=== PATIENT | female | born 1980 | race Caucasian/White ===

== ENCOUNTER 2017-03-27 20:39 | Emergency (ER) | payer OTHER ==
[~2017-03-27] VITALS: Ht 167.6 cm; Wt 105.5 kg
[~2017-03-27 20:39] MED LIST: IBUP400T22 PO; PT TAKES NO MEDS; UDROBDM PO
[2017-03-27 20:45] VITALS: Ht 167.6 cm; Wt 105.5 kg
[2017-03-27] MEDS ORDERED: ACETAMINOPHEN 500 MG TAB PO STA (21:44)
[2017-03-27] MEDS ORDERED: LIDOCAINE/MYLANTA 40 ML BTL PO ONE (22:00)
--- NOTE | 2017-03-27 22:09 | RADRPT ---
PROCEDURE: XR Chest. CLINICAL INDICATION: Chest pain. TECHNIQUE: Single frontal view. COMPARISON: None. FINDINGS: The lungs are clear. The heart size is normal. There is no pleural effusion. There is no pneumothorax. IMPRESSION: 1. Normal chest radiograph. RPTAT: QQ .Boston Tan MD, Date Time Electronically viewed and signed by .Boston Tan MD, on 03/27/2017 22:08 .R/
[2017-03-27 22:33] LABS: URINE BLOOD (Dip) POC Trace-intact (NEGATIVE)
--- NOTE | 2017-03-27 23:29 | RADRPT ---
PROCEDURE: CT abdomen and pelvis without intravenous contrast. CLINICAL INDICATION: Pain. TECHNIQUE: CT of the abdomen/pelvis was performed utilizing axial images with reconstructions in s agittal and coronal planes. The administered radiation dose is CTDI 22 mGy, DLP 1279 mGy-cm. COMPARISON: No pertinent prior examinations were submitted for comparison. FINDINGS: Visualized Chest: The visualized lung bases are clear. Abdomen: The spleen, pancreas, and adrenal glands are unremarkable. The liver is markedly, diffusely decre ased in attenuation, compatible with hepatic steatosis. Prior cholecystectomy is noted. The kidneys are without hydronephrosis. No definite urinary calculi are seen. There is some mild dilatation of the distal appendix measuring up to 10 mm along with some minimal s urrounding fat infiltrative changes.. There is no evidence of intra-abdominal adenopathy or free fluid. Pelvis: There is no evidence of pelvic adenopathy. The uterus and ovaries are without enlargement. The uri nary bladder is unremarkable. There is no pelvic free fluid. Osseous structures: Unremarkable. IMPRESSION: Mild enlargement of the distal appendix with some minimal surrounding fat infiltrative changes. Ple ase correlate for right lower quadrant tenderness and leukocytosis which would suggest tip appendici tis. Hepatic steatosis. RPTAT: HIKT .Cedrick Young MD, MD Date Time Electronically viewed and signed by .Cedrick Young MD, on 03/27/2017 23:29 .T/
[2017-03-27] MEDS ORDERED: ACET500C5 PO (23:35)
[2017-03-27] MEDS ORDERED: PANT40TA3 PO (23:35)
--- NOTE | 2017-03-27 23:38 | ERD ---
ER Documentation Chief Complaint Date/Time DATE: 03/27/17 TIME: 23:36 Chief Complaint LUQ abd pain radiating to the upper back denies N/V/Diarrhea HPI This 37-year-old female presents with a approximately 1 week history of left upper quadrant abdominal pain. Radiates slightly from the back. She denies any lower abdominal pain or right-sided abdominal pain. She denies fevers, decreased appetite, vomiting or diarrhea. She denies any urinary complaints. She denies any cough or shortness of breath. ROS All systems reviewed and are negative except as per history of present illness. Medications Home Meds Active Scripts Pantoprazole* (Protonix*) 40 Mg Tablet.dr, 40 MG PO DAILY for 15 Days, #20 TAB Prov:EDILBERTO NAZARIO MD 03/27/17 Acetaminophen* (Tylophen*) 500 Mg Capsule, 1 CAP PO Q6H Y for PAIN AND OR ELEVATED TEMP, #20 CAP Prov:EDILBERTO NAZARIO MD 03/27/17 Ibuprofen* (Motrin*) 400 Mg Tab, 400 MG PO Q6, #30 TAB 0 Refills Prov:EVELYN KATZ PA-C 02/16/16 Guaifenesin-Dextromethorphan* (Robitussin* DM) 100MG/10MG/5ML Syrup, 5 ML PO Q6H Y for COUGH for 6 Days, #120 ML 0 Refills Prov:EVELYN KATZ PA-C 02/16/16 Reported Medications [Pt Takes No Meds] No Conflict Check 11/06/12 Allergies Allergies: Coded Allergies: No Known Allergy (Verified , 01/29/14) PMhx/Soc History of Surgery: Yes (cholecystectomy) Anesthesia Reaction: No Hx Neurological Disorder: No Hx Respiratory Disorders: No Hx Cardiac Disorders: No Hx Psychiatric Problems: No Hx Miscellaneous Medical Probl: No Hx Alcohol Use: No Hx Substance Use: No Hx Tobacco Use: No Physical Exam Vitals Vital Signs Date Time Temp Pulse Resp B/P Pulse Ox O2 Delivery O2 Flow Rate FiO2 03/27/17 20:45 98.5 73 18 136/86 96 Physical Exam Const: [], Not ill-appearing per Head: Atraumatic Eyes: Normal Conjunctiva ENT: Normal External Ears, Nose and Mouth. Neck: Full range of motion..~ No meningismus. Resp: Clear to auscultation bilaterally Cardio: Regular rate and rhythm, no murmurs Abd: Soft, n minimal tenderness in left lower quadrant slightly in the left flank area. No change at McBurney's point no Morin sign and no rebound., non distended. Normal bowel sounds. Patient has negative Rovsing sign no evidence of pain with ambulation or peritoneal signs. Skin: No petechiae or rashes Back: No midline or flank tenderness Ext: No cyanosis, or edema Neur: Awake and alert Psych: Normal Mood and Affect Results 24 hrs Laboratory Tests Test 03/27/17 22:38 Bedside Urine pH (LAB) 6.0 Bedside Urine Protein (LAB) Negative Bedside Urine Glucose (UA) Negative Bedside Urine Ketones (LAB) Negative Bedside Urine Blood Trace-intact Bedside Urine Nitrite (LAB) Negative Bedside Urine Leukocyte Esterase (L Negative Current Medications Medications (Trade) Dose Ordered Sig/Jazmine Route PRN Reason Start Time Stop Time Status Last Admin Dose Admin Acetaminophen (Tylenol Tab) 500 mg ONCE STAT PO 03/27/17 21:44 03/27/17 21:45 DC 03/27/17 22:24 Miscellaneous Medication (Gi Cocktail (2)) 40 ml ONCE ONCE PO 03/27/17 22:00 03/27/17 22:01 DC 03/27/17 22:24 Procedures/MDM And shows 1+ hemoglobin. HCG is negative. No leukocytes, nitrites or glucose. Patient was given a GI cocktail and Tylenol which improved her pain. She has some mild residual burning of the epigastric area. Chest X-ray 1V Interpreted by me: Soft Tissue: No acute abnormalities Bones: No acute abnormalities Mediastinum/Cardiac Silhouette/Lungs: [No acute abnormalities]. Impression- normal 1 view chest x-ray The uncertain cause of pain CT abdomen pelvis noncontrast showed wishes some mild dilatation of the tip of the appendix correlate clinically for appendicitis. Patient on serial abdominal exam and had no right lower quadrant tenderness no signs to suggest appendicitis. Given the absence of fevers, anorexia, vomiting and duration of symptoms and suspicion for appendicitis is very low despite incidental findings of CT scan. Patient has signs and symptoms most consistent with gastritis and we will treat with Protonix and Tylenol and close observation at home. She should recheck the next day for lower abdominal pain, right-sided abdominal pain, fevers, vomiting, new worsening symptoms with primary care doctor this week. The patient was stable with no new complaints during the ER course. Clinically, there is no current evidence to suggest meningitis, sepsis, acute abdomen, pneumonia, acute coronary syndrome, pulmonary embolism, or any other emergent condition appearing to require further evaluation or hospitalization. The patient should certainly return for any new or worsening symptoms per the aftercare instructions. They should otherwise follow-up with her primary care doctor for reevaluation this week. Departure Diagnosis: Primary Impression: Abdominal pain Abdominal location: epigastric Qualified Code: R10.13 - Epigastric pain Condition: Stable Patient Instructions: Abdominal Pain, Gastritis (Adult) Additional Instructions: Recheck in the next day for right lower abdominal pain, fevers, nausea vomiting. We will treat for gastritis. EDILBERTO NAZARIO MD Mar 27, 2017 23:38
[2017-03-27 23:56] VITALS: BP 118/78; PULSE 78; RESP 20; TEMP 98.3
[2017-03-28] MEDS ORDERED: FAMOTIDINE 20 MG TAB PO ONE
== END 2017-03-27 23:58 | disposition home or self-care (01) ==
LOC: FTE 20:39
DX: R10.13 Epigastric pain (principal)
CPT/HCPCS: 71010; 74176; 81003; Z7502; Z7610

== ENCOUNTER 2017-03-28 03:09 | Inpatient (IN) | payer OTHER ==
[2017-03-28] VITALS (15 sets, daily range): BP systolic 100–135; BP diastolic 57–74; PULSE 65–98; RESP 12–18; TEMP 98.2; Ht 167.6 cm; Wt 104.5 kg
[~2017-03-28] VITALS: Ht 167.6 cm; Wt 104.5 kg
[~2017-03-28 03:09] MED LIST changes: +ACET500C5 PO; +PANT40TA3 PO
[2017-03-28] MEDS ORDERED: ONDANSETRON 4 MG INJ IV STA (04:49)
[2017-03-28] MEDS ORDERED: morphine 4 MG/ML VIAL IV STA (04:49)
--- NOTE | 2017-03-28 04:58 | ERA ---
ER Documentation Chief Complaint Date/Time DATE: 03/28/17 TIME: 04:50 Chief Complaint abd pain HPI The patient is a 37-year-old female, presenting to the ER because of umbilical abdominal pain that began about 4 PM yesterday. He was seen in the ER and discharged. She came back today because of the pain is worsening. He denies fever, chills, neck pain, chest pain, dyspnea. The abdominal pain is 10/10, no aggravating or relieving factor. He denies diarrhea, constipation, dysuria, polyuria. He does not smoke or drink Past medical history: None Past surgical history: Cholecystectomy ROS All systems reviewed and are negative except as per history of present illness. Medications Home Meds Active Scripts Pantoprazole* (Protonix*) 40 Mg Tablet.dr, 40 MG PO DAILY for 15 Days, #20 TAB Prov:EDILBERTO NAZARIO MD 03/27/17 Acetaminophen* (Tylophen*) 500 Mg Capsule, 1 CAP PO Q6H Y for PAIN AND OR ELEVATED TEMP, #20 CAP Prov:EDILBERTO NAZARIO MD 03/27/17 Ibuprofen* (Motrin*) 400 Mg Tab, 400 MG PO Q6, #30 TAB 0 Refills Prov:EVELYN KATZ PA-C 02/16/16 Guaifenesin-Dextromethorphan* (Robitussin* DM) 100MG/10MG/5ML Syrup, 5 ML PO Q6H Y for COUGH for 6 Days, #120 ML 0 Refills Prov:EVELYN KATZ PA-C 02/16/16 Reported Medications [Pt Takes No Meds] No Conflict Check 11/06/12 Allergies Allergies: Coded Allergies: No Known Allergy (Verified , 01/29/14) PMhx/Soc History of Surgery: Yes (cholecystectomy) Anesthesia Reaction: No Hx Neurological Disorder: No Hx Respiratory Disorders: No Hx Cardiac Disorders: No Hx Psychiatric Problems: No Hx Miscellaneous Medical Probl: No Hx Alcohol Use: No Hx Substance Use: No Hx Tobacco Use: No Physical Exam Vitals Vital Signs Date Time Temp Pulse Resp B/P Pulse Ox O2 Delivery O2 Flow Rate FiO2 03/28/17 03:13 98.4 98 20 131/81 98 Physical Exam Const: No acute distress. Head: Atraumatic. Eyes: Normal Conjunctiva. ENT: Normal External Ears, Nose and Mouth. Neck: Full range of motion. No meningismus. Resp: Clear to auscultation bilaterally. Cardio: Regular rate and rhythm. Abd: Soft, non distended, normal bowel sounds, moderate umbilical and right lower quadrant tenderness. No rigidity, rebound, CVA tenderness Skin: No petechiae or rashes. Back: No midline or flank tenderness. Ext: No cyanosis, or edema. Neur: Awake and alert. No focal deficit Psych: Normal Mood and Affect. Results 24 hrs Current Medications Medications (Trade) Dose Ordered Sig/Jazmine Route PRN Reason Start Time Stop Time Status Last Admin Dose Admin Piperacillin Sod/ Tazobactam Sod 100 ml @ 200 mls/hr ONCE ONCE IVPB 03/28/17 05:00 03/28/17 05:29 Sodium Chloride (NS) 250 ml @ 250 mls/hr Q1H ONCE IV 03/28/17 05:00 03/28/17 05:59 Procedures/MDM MEDICAL MAKING DECISION: The patient is a 37-year-old female, presenting with acute appendicitis. She had a CAT scan earlier today did not show appendicitis. It is unclear why she was sent home. She was treated 1 L normal saline, Zosyn IV, morphine 4 mg IV for pain and Zofran 4 mg IV for nausea with good response. The differential diagnoses considered include but are not limited to cholelithiasis, cholecystitis, cystitis, pancreatitis, hepatitis, gastritis, peptic ulcer disease, gastric ulcer, appendicitis, diverticulitis, cholangitis, choledocholithiasis, partial small bowel obstruction. Consultation: I discussed the patient with the on-call general surgeon Dr Graham , who was made aware of the pending lab, the recent CT scan only a few hours ago. He accepted the patient at 4:50 AM Departure Diagnosis: Primary Impression: Acute appendicitis Condition: Stable Comments I discussed the findings with the patient. I discussed the patient with the on- call hospitalist Dr. Foley at 5 AM who was made aware of the lab, the treatment, the patient condition. The patient is admitted to medical surgery bed The patient's blood pressure was elevated (>120/80) but appears stable without evidence of hypertension emergency or urgency. The patient was counseled about the risks of hypertension and urged to pursue outpatient monitoring and therapy within a week with their primary care physician. ANGIE MARTIN MD Mar 28, 2017 04:58
[2017-03-28] MEDS ORDERED: SOD CHLORIDE 0.9% 250 ML IV ONE (05:00)
[2017-03-28] MEDS ORDERED: PIPER-TAZO 3.375 GM IV (PMX) 100 ML IVPB ONE (05:00)
[2017-03-28 05:12] LABS: ADD SCAN DIFF NO
[2017-03-28 05:14] LABS: BASOPHIL # 0.1 10^3/ul (0.0-0.1); BASOPHILS % 0.3 % (0.0-2.0); EOSINOPHILS # 0.1 10^3/ul (0.0-0.5); EOSINOPHILS % 0.3 % (0.0-7.0); HEMATOCRIT 38.2 % (37.0-47.0); HEMOGLOBIN 12.5 g/dl (12.0-16.0); LYMPHOCYTES # 1.7 10^3/ul (0.8-2.9); LYMPHOCYTES % 9.9 % (15.0-51.0); MEAN CORPUSCULAR HEMOGLOBIN 27.7 pg (29.0-33.0); MEAN CORPUSCULAR HGB CONC 32.7 g/dl (32.0-37.0); MEAN CORPUSCULAR VOLUME 84.5 fl (82.0-101.0); MEAN PLATELET VOLUME 11.6 fl (7.4-10.4); MONOCYTE # 0.8 10^3/ul (0.3-0.9); MONOCYTES % 4.7 % (0.0-11.0); NEUTROPHIL # 14.6 10^3/ul (1.6-7.5); NEUTROPHILS % 84.2 % (39.0-77.0); PLATELET COUNT 332 10^3/UL (140-415); RED BLOOD COUNT 4.52 10^6/ul (4.20-5.40); RED CELL DISTRIBUTION WIDTH 14.1 % (11.5-14.5); WHITE BLOOD COUNT 17.3 10^3/ul (4.8-10.8)
--- NOTE | 2017-03-28 05:28 | RADRPT ---
PROCEDURE: Chest. CLINICAL INDICATION: Chest pain. TECHNIQUE: Single frontal view of the chest was obtained. COMPARISON: 03/27/2017. FINDINGS: The cardiac silhouette is magnified. The aortic arch is unremarkable. There is no focal consolidat ion, vascular congestion or pleural effusion. There is no pneumothorax. IMPRESSION: No evidence for active cardiopulmonary disease. .Tim Marshall MD, MD Date Time Electronically viewed and signed by .Tim Marshall MD, on 03/28/2017 05:28 .T/
--- NOTE | 2017-03-28 05:43 | HP ---
Date/Time of Note Date/Time of Note DATE: 03/28/17 TIME: 05:42 Assessment/Plan VTE Prophylaxis VTE Prophylaxis Intervention: SCD's Assessment/Plan Chief Complaint/Hosp Course This is a 37 year female being admitted [facility] floor for: #1 acute appendicitis: Patient has right lower quadrant pain to palpation as well as an elevated white blood cell count of 17. CT of the scan yesterday which was suspicious for appendicitis please CT scan report for further information. Surgery was consulted. We will keep the patient n.p.o. Zosyn IV antibiotics. IV narcotic for pain control. #2 morbid obesity: We will check lipids and TSH and A1c. #3 DVT and GI prophylaxis: SCDs, protonix Further treatment strategy as per the clinical course Problems: HPI/ROS Admit Date/Time Admit Date/Time Hx of Present Illness Chief complaint: Abdominal pain 2 days This is a 37 year female presenting to the ER with abdominal pain 2 days. Patient had abdominal pain yesterday and came to the ED and had CAT scan imaging which was questionable for appendicitis of the tip. She was subsequently discharged home. She continued to have abdominal pain and nausea vomiting today. She describes the pain as sharp and is relatively all around the umbilicus and right side of her abdomen. Allergies: NKDA Medications: None ROS Const: As per HPI Eyes : No pain discharge or redness or change in visual acuity ENT: No pain, sore throat, congestion, congestion, dysphagia or discharge Respiratory: No shortness of breath, cough, sputum, wheezing, or pleuritic pain Cardiovascular: No chest pain, palpitation, PND, or edema GI : As per HPI Genitourinary: No dysuria, hematuria, flank pain , discharge or CVA tenderness Musculoskeletal: No joint pain, back pain, neck pain, restricted range of motion in neck or joints Skin: No rash, bruising or hives Neuro: No headache, dizziness, syncope, seizure, focal weakness Endocrine: No polyuria, polydipsia, temperature intolerance Psych: No hallucination, depression, anxiety or suicidal ideation PMH/Family/Social Past Medical History Medical History: no pertinent history Past Surgical History Cholecystectomy Family History Significant Family History: diabetes, hypertension Social History Alcohol Use: none Smoking Status: Never smoker Drug Use: none Exam/Review of Systems Vital Signs Vitals Vital Signs Date Time Temp Pulse Resp B/P Pulse Ox O2 Delivery O2 Flow Rate FiO2 7/14/17 03:13 98.4 98 20 131/81 98 Exam Exam General: Patient is a obese female lying in bed in no acute distress, she does have pain when palpated on the abdomen. HEENT: Atraumatic, normocephalic. The pupils are equal, round and reactive. Extraocular motor are intact Neck: Supple with full range of motion. No rigidity or meningismus Chest: Nontender Lungs: Clear to auscultation bilaterally no crackles rales or wheezing Heart: Normal S1-S2, Regular rhythm and rate. No murmur, S3, or S4 Abdomen: Soft, tenderness to palpation at the right lower quadrant, tenderness to palpation over the umbilical area. Extremities: Normal to inspection, no edema no cyanosis Neurologic: Normal mental status, speech normal, cranial nerves II through XII are intact, motor and sensory are intact, no focal weakness Additional Comments ROCEDURE: Chest. CLINICAL INDICATION: Chest pain. TECHNIQUE: Single frontal view of the chest was obtained. COMPARISON: 03/27/2017. FINDINGS: The cardiac silhouette is magnified. The aortic arch is unremarkable. There is no focal consolidation, vascular congestion or pleural effusion. There is no pneumothorax. IMPRESSION: No evidence for active cardiopulmonary disease. .Tim Marshall MD, MD Date Time Electronically viewed and signed by .Tim Marshall MD, on 03/28/2017 05:28 .T/ PROCEDURE: CT abdomen and pelvis without intravenous contrast. CLINICAL INDICATION: Pain. TECHNIQUE: CT of the abdomen/pelvis was performed utilizing axial images with reconstructions in sagittal and coronal planes. The administered radiation dose is CTDI 22 mGy, DLP 1279 mGy-cm. COMPARISON: No pertinent prior examinations were submitted for comparison. FINDINGS: Visualized Chest: The visualized lung bases are clear. Abdomen: The spleen, pancreas, and adrenal glands are unremarkable. The liver is markedly, diffusely decreased in attenuation, compatible with hepatic steatosis. Prior cholecystectomy is noted. The kidneys are without hydronephrosis. No definite urinary calculi are seen. There is some mild dilatation of the distal appendix measuring up to 10 mm along with some minimal surrounding fat infiltrative changes.. There is no evidence of intra-abdominal adenopathy or free fluid. Pelvis: There is no evidence of pelvic adenopathy. The uterus and ovaries are without enlargement. The urinary bladder is unremarkable. There is no pelvic free fluid. Osseous structures: Unremarkable. IMPRESSION: Mild enlargement of the distal appendix with some minimal surrounding fat infiltrative changes. Please correlate for right lower quadrant tenderness and leukocytosis which would suggest tip appendicitis. Hepatic steatosis. RPTAT: HIKT .Cedrick Young MD, MD Date Time Electronically viewed and signed by .Cedrick Young MD, MD on 03/27/2017 23:29 Labs Result Diagram: 03/28/17 0450 Medications Medications Current Medications Sodium Chloride (NS) 250 ml @ 250 mls/hr Q1H ONCE IV Last administered on 03/28t 05:00; Admin Dose 250 MLS/HR; Start 03/28/17 at 05:00; Stop 03/28/17 at 05 :59 SHARON CHAMPION Mar 28, 2017 05:43
[2017-03-28 05:44] LABS: ALBUMIN/GLOBULIN RATIO 1.47; BILIRUBIN,INDIRECT 0.6 mg/dl (0-1.1); BILIRUBIN,TOTAL 0.6 mg/dl (0.2-1.3); CALCIUM 9.7 mg/dl (8.4-10.2); CREATININE 0.66 mg/dl (0.44-1.00); POTASSIUM 3.8 mmol/L (3.5-5.1); TOTAL PROTEIN 8.4 g/dl (6.1-8.1)
[2017-03-28] MEDS ORDERED: ONDANSETRON 4 MG INJ IV PRN ×2 (06:00→21:30)
[2017-03-28] MEDS ORDERED: morphine 2 MG INJ IV PRN (06:00)
[2017-03-28] MEDS ORDERED: NACL 0.9% 3 ML SYG IV SCH (06:00)
[2017-03-28] MEDS: SOD CHLORIDE 0.9% 1,000 ML IV SCH ×3 (06:22→23:58)
[2017-03-28] MEDS: PANTOPRAZOLE 40 MG INJ IV SCH (06:25)
[2017-03-28] MEDS ORDERED: CEFAZOLIN 1 GM INJ ONE (07:00)
[2017-03-28] MEDS ORDERED: LIDOCAINE 2% (SDV) 5 ML INJ ONE (07:00)
[2017-03-28] MEDS ORDERED: ROCURONIUM 50 MG INJ ONE (07:00)
[2017-03-28 09:54] LABS: CHOL/HDL RATIO 3.9 RATIO
[2017-03-28 10:44] LABS: THYROID STIMULATING HORMONE 0.678 MIU/L (0.465-4.680)
[2017-03-28] MEDS: PIPER-TAZO 3.375 GM IV (PMX) 100 ML IVPB SCH ×3 (12:26→23:50)
--- NOTE | 2017-03-28 15:58 | CONS ---
Date/Time of Note Date/Time of Note DATE: 03/28/17 TIME: 15:53 Assessment/Plan Assessment/Plan Chief Complaint/Hosp Course 37-year-old female with acute appendicitis. This has been confirmed via CT scan and clinical findings of right lower quadrant abdominal pain. * Continue nothing by mouth * Broad-spectrum intravenous antibiotics * IV fluid hydration * Pain control Definitive treatment will consist of laparoscopic appendectomy; possible open. This has been explained to the patient along with all risks and benefits of the procedure. She fully understands and is agreeable to the treatment plan as outlined. Informed consent will be obtained and the patient will be scheduled for laparoscopic appendectomy; possible open Problems: Consultation Date/Type/Reason Admit Date/Time Date of Consultation: Mar 28, 2017 Type of Consultation: GENERAL SURGERY Reason for Consultation Acute appendicitis Hx of Present Illness Patient is a 37-year-old obese female who presented to the emergency room initially 2 days ago complaining of abdominal pain. At that time a CT scan of the abdomen and pelvis was done which showed mild dilation of the appendiceal tip with minimal inflammatory changes. She was sent home, however, her pain worsened and became more localized towards the umbilicus in the right lower quadrant. She then re-presented to the emergency room. She reports nausea and vomiting after the onset of pain. She denies any fever/chills. She denies any diarrhea or constipation. She reports having a similar episode of pain in the past for which she went to [facility]. She reports that there that she was told that she has some mild "swelling" of the appendix, however, nothing was done for her at that time and the pain resolved on its own. Currently she states she is still experiencing some mild umbilical and right lower quadrant abdominal pain. A 14 point review of systems was conducted and was negative except for that which is mentioned in HPI Past Medical History Medical History: no pertinent history Past Surgical History Past Surgical Hx: cholecystectomy Family History Significant Family History: no pertinent family hx Social History Alcohol Use: none Smoking Status: Never smoker Drug Use: none Exam/Review of Systems Vital Signs Vitals Vital Signs Date Time Temp Pulse Resp B/P Pulse Ox O2 Delivery O2 Flow Rate FiO2 03/28/17 14:10 98.8 77 16 117/70 97 03/28/17 06:49 Room Air Exam GENERAL: Awake, alert, oriented x 3. No acute distress. SKIN: No jaundice. HEENT: PERRLA, EOMI, No Scleral Icterus NECK: Supple without JVD CARDIOVASCULAR: S1S2, regular rate and rhythm. No murmurs appreciated. RESPIRATORY: Clear to auscultation bilaterally. ABDOMEN: Obese, soft, bowel sounds present, nondistended, there is right lower quadrant tenderness to palpation. EXTREMITIES: Free range of motion x 4. No cyanosis, edema, or clubbing. NEUROLOGIC: Cranial nerves II-XII are intact. Sensation is intact grossly. Results Result Diagram: 03/28/170 03/28/17 0450 Results 24 hrs Laboratory Tests Test 03/28/17 04:50 White Blood Count 17.3 H Red Blood Count 4.52 Hemoglobin 12.5 Hematocrit 38.2 Mean Corpuscular Volume 84.5 Mean Corpuscular Hemoglobin 27.7 L Mean Corpuscular Hemoglobin Concent 32.7 Red Cell Distribution Width 14.1 Platelet Count 332 Mean Platelet Volume 11.6 H Neutrophils % 84.2 H Lymphocytes % 9.9 L Monocytes % 4.7 Eosinophils % 0.3 Basophils % 0.3 Nucleated Red Blood Cells % 0.0 Neutrophils # 14.6 H Lymphocytes # 1.7 Monocytes # 0.8 Eosinophils # 0.1 Basophils # 0.1 Nucleated Red Blood Cells # 0.0 Sodium Level 136 Potassium Level 3.8 Chloride Level 99 Carbon Dioxide Level 27 Anion Gap 14 Blood Urea Nitrogen 10 Creatinine 0.66 Glucose Level 140 Hemoglobin A1c 6.1 H Calcium Level 9.7 Total Bilirubin 0.6 Direct Bilirubin 0.00 Indirect Bilirubin 0.6 Aspartate Amino Transf (AST/SGOT) 43 Alanine Aminotransferase (ALT/SGPT) 55 Alkaline Phosphatase 84 Total Protein 8.4 H Albumin 5.0 H Globulin 3.40 H Albumin/Globulin Ratio 1.47 Triglycerides Level 108 Cholesterol Level 176 LDL Cholesterol, Calculated 109 HDL Cholesterol 45 Cholesterol/HDL Ratio 3.9 Lipase 49 Thyroid Stimulating Hormone (TSH) 0.678 Medications Medications Current Medications Sodium Chloride (NS) 1,000 ml @ 80 mls/hr [id number] IV Last administered on 03/28t 06:22; Admin Dose 80 MLS/HR; Start 03/28/17 at 05:38 Ondansetron HCl (Zofran Inj) 4 mg Q6H PRN IV NAUSEA AND/OR VOMITING; Start at 06:00 Morphine Sulfate (morphine) 2 mg Q4H PRN IV SEVERE PAIN LEVEL 7-10; Start 03/28 at 06:00 Pantoprazole 40 mg 40 mg DAILY@06 IV Last administered on 03/28/17 06:25; Admin Dose 40 MG; Start 03/28/17 at 06:00 Piperacillin Sod/ Tazobactam Sod (Zosyn 3.375gm/ 100 ml (Pmx)) 100 ml @ 200 mls /hr Q6 IVPB Last administered on 03/28/17 12:26; Admin Dose 200 MLS/HR; Start 03/28/17 at 12:00 ANGIE RILEY MD Mar 28, 2017 15:57
[2017-03-28 16:39] LABS: ADD UMIC YES; UR ASCORBIC ACID NEGATIVE (NEGATIVE); UR BACTERIA FEW /HPF (NONE SEEN); UR BILIRUBIN (Dip) NEGATIVE (NEGATIVE); UR BLOOD (Dip) NEGATIVE (NEGATIVE); UR CLARITY CLOUDY (CLEAR); UR COLOR YELLOW (YELLOW); UR GLUCOSE (Dip) NEGATIVE (NEGATIVE); UR KETONES (Dip) NEGATIVE (NEGATIVE); UR LEUKOCYTE ESTERASE (Dip) NEGATIVE Leu/ul (NEGATIVE); UR MUCUS FEW /HPF (NONE SEEN); UR NITRITE (Dip) NEGATIVE (NEGATIVE); UR RBC 1 /HPF (0-5); UR SQUAMOUS EPITHELIAL CELL MANY /HPF (FEW); UR TOTAL PROTEIN (Dip) NEGATIVE (NEGATIVE); UR UROBILINOGEN (Dip) NEGATIVE (NEGATIVE)
[2017-03-28] MEDS ORDERED: MIDAZOLAM 1 MG/ML 2 ML INJ ONE (20:55)
[2017-03-28] MEDS ORDERED: FENTAnyl 50 MCG/ML VIAL ONE (20:56)
[2017-03-28] MEDS ORDERED: PROPOFOL 20 ML ONE (21:00)
[2017-03-28] MEDS ORDERED: SUCCINYLCHOLINE CHLORIDE 100 MG/5 ML SYG IV ONE (21:03)
[2017-03-28] MEDS: BUPIVACAINE 0.25%/EPI (SDV) 30 ML INJ ONE ×2 (21:21→22:07)
[2017-03-28] MEDS ORDERED: HYDROmorphONE (0.2 MG/ML) 10ML SYG IV PRN (21:30)
[2017-03-28] MEDS ORDERED: ONDANSETRON 4 MG INJ ONE (21:31)
[2017-03-28] MEDS ORDERED: GLYCOPYRROLATE 1 MG INJ ONE (21:31)
[2017-03-28] MEDS ORDERED: NEOSTIGMINE 3 MG/3 ML SYRINGE ONE (21:31)
[2017-03-28] MEDS ORDERED: DEXAMETHASONE 4 MG/ML 1 ML INJ ONE (21:32)
[2017-03-28] MEDS ORDERED: METOCLOPRAMIDE 10 MG INJ ONE (21:32)
[2017-03-28] MEDS ORDERED: MEPERIDINE 25 MG INJ ONE (22:16)
--- NOTE | 2017-03-28 22:16 | OPR ---
Date/Time of Note Date/Time of Note DATE: 03/28/17 TIME: 22:10 Operative Report Procedure Date: Mar 28, 2017 Preoperative Diagnosis Acute appendicitis with localized peritonitis Postoperative Diagnosis Acute appendicitis with localized peritonitis Operation Performed Laparoscopic appendectomy Surgeon: ANGIE RILEY MD Anesthesia: general Anesthesiologist: KACI ARIZA MD Estimated Blood Loss: minimal Specimens Appendix Complications: None Pt Condition Post Procedure: stable Disposition: PACU Indications The patient is a morbidly obese 37-year-old female who was initially seen in the emergency room the day prior to admission. She was complaining of right lower quadrant abdominal pain. At that time a CT scan showed dilated appendiceal tip with mild inflammatory changes. The patient was sent home, however, her pain persisted and she re-presented to the emergency room. She was therefore admitted and surgical consultation was called. She was kept nothing by mouth, started on broad-spectrum intravenous antibiotics and scheduled for laparoscopic appendectomy; possible open as definitive treatment. All risks and benefits of the procedure including but not limited to: Wound infection, excessive bleeding, injury to intra-abdominal organs, conversion to open procedure etc. were explained to the patient in full detail. The patient fully understood and wished to proceed with the procedure. Informed consent was therefore obtained. Operative\Procedure Findings Retrocecal nonperforated appendicitis Procedure Description The patient was brought to the operating room and placed supine on the operating table. Bilateral sequential compression devices were placed on both lower extremities. The patient had been maintained on broad-spectrum intravenous antibiotics while an inpatient on the floor. After the induction of smooth general endotracheal anesthesia the patient's abdomen was prepped and draped in the standard surgical fashion. A 5 mm incision was made in the superior umbilicus through the patient's prior laparoscopic cholecystectomy incision and a Veress needle was used to access the intra-abdominal cavity atraumatically. Pneumoperitoneum was then obtained and the Veress needle was exchanged for a 5 mm trocar through which a 5 mm laparoscope was placed. Two further working ports were then placed, a 12 mm port in the midline suprapubic area and another 5 mm port midway between the suprapubic and umbilical port sites. All port sites were anesthetized with 0.25% Marcaine with epinephrine prior to incision. Attention was then turned towards the right lower quadrant. Using atraumatic graspers the cecum was grasped and rotated medially. The tinea coli were followed downstairs convergence. A retrocecal appendix was identified. It was densely adhered to the retroperitoneum. It was gently dissected off using combination of blunt dissection and harmonic scalpel. Once it was dissected free, the appendix was grasped and retracted superiorly and medially exposing the mesoappendix. The appendix appeared erythematous and inflamed consistent with acute appendicitis, but not perforated. Using a [place] dissector window was made between the appendiceal base and the mesoappendix. The appendix was then transected at its base using a firing of the laparoscopic RUSTAM stapler. The mesoappendix was then taken using the harmonic scalpel. Once completely free the appendix was placed in an Endo Catch bag and withdrawn through the suprapubic port site and passed off the field as specimen. Hemostasis was then inspected for and noted to be adequate. The abdomen was then irrigated with copious amounts of warm normal saline and the irrigant returned crystal clear. The fascia of the suprapubic port site was then reapproximated using an Endo Close device and 0 Vicryl suture. Pneumoperitoneum was then released and all remaining trochars were withdrawn under direct vision. The subcutaneous tissues were irrigated with more warm normal saline and further local anesthesia was applied around the skin of the incision sites. The skin was then reapproximated using 4-0 Monocryl sutures in subcuticular fashion. The incisions were cleaned and Dermabond was applied and the patient was awoken from anesthesia and transported to the recovery room in stable condition. All counts were correct at the end of the case x 2. ANGIE RILEY MD Mar 28, 2017 22:16
[2017-03-28] MEDS ORDERED: MEPERIDINE 25 MG INJ IV PRN (22:30)
[2017-03-28] MEDS ORDERED: HYDROCODONE/APAP (5/325) TAB PO PRN (22:30)
[2017-03-28] MEDS ORDERED: HYDROmorphONE 1 MG/ML SYG IV PRN (22:30)
[2017-03-28] MEDS ORDERED: ACETAMINOPHEN 325 MG TAB PO PRN (22:30)
[2017-03-28] MEDS ORDERED: HYDROCODONE/APAP (10/325) TAB PO PRN (22:30)
[2017-03-29 00:15] VITALS: BP 101/60; RESP 17
[2017-03-29 00:45] VITALS: BP 111/66; RESP 16
[2017-03-29 02:16] VITALS: BP 123/62; RESP 16
[2017-03-29] MEDS: PANTOPRAZOLE 40 MG INJ IV SCH (06:12)
[2017-03-29] MEDS: PIPER-TAZO 3.375 GM IV (PMX) 100 ML IVPB SCH ×3 (06:12→17:41)
[2017-03-29] MEDS ORDERED: DEXTROSE 50% 50 ML SYRINGE ONE (06:49)
[2017-03-29 07:33] LABS: ADD SCAN DIFF NO
[2017-03-29 07:41] LABS: BASOPHILS % 0.3 % (0.0-2.0); HEMATOCRIT 35.6 % (37.0-47.0); HEMOGLOBIN 11.5 g/dl (12.0-16.0); LYMPHOCYTES # 1.3 10^3/ul (0.8-2.9); LYMPHOCYTES % 11.3 % (15.0-51.0); MEAN CORPUSCULAR HEMOGLOBIN 27.7 pg (29.0-33.0); MEAN CORPUSCULAR HGB CONC 32.3 g/dl (32.0-37.0); MEAN CORPUSCULAR VOLUME 85.8 fl (82.0-101.0); MEAN PLATELET VOLUME 11.6 fl (7.4-10.4); MONOCYTE # 0.2 10^3/ul (0.3-0.9); MONOCYTES % 1.9 % (0.0-11.0); NEUTROPHILS % 86.2 % (39.0-77.0); PLATELET COUNT 331 10^3/UL (140-415); RED BLOOD COUNT 4.15 10^6/ul (4.20-5.40); RED CELL DISTRIBUTION WIDTH 14.2 % (11.5-14.5); WHITE BLOOD COUNT 11.6 10^3/ul (4.8-10.8)
[2017-03-29 08:01] LABS: ALBUMIN 4.2 g/dl (3.3-4.9); ALBUMIN/GLOBULIN RATIO 1.55; BILIRUBIN,INDIRECT 0.7 mg/dl (0-1.1); BILIRUBIN,TOTAL 0.7 mg/dl (0.2-1.3); CREATININE 0.69 mg/dl (0.44-1.00); POTASSIUM 4.6 mmol/L (3.5-5.1); TOTAL PROTEIN 6.9 g/dl (6.1-8.1)
[2017-03-29 08:03] LABS: MAGNESIUM 2.2 mg/dl (1.7-2.5); PHOSPHORUS 3.7 mg/dl (2.5-4.9)
[2017-03-29 08:20] VITALS: BP 102/61; RESP 16
[2017-03-29] MEDS ORDERED: DOCUSATE SODIUM 100 MG CAP PO SCH (09:00)
--- NOTE | 2017-03-29 11:23 | PN ---
Date/Time of Note Date/Time of Note DATE: 03/29/17 TIME: 11:21 Assessment/Plan VTE Prophylaxis VTE Prophylaxis Intervention: ambulation, SCD's Lines/Catheters IV C[facility]ter Type [facility]from [facility]): Peripheral IV Urinary Cath still in place: No Assessment/Plan Chief Complaint/Hosp Course 1. Acute appendicitis with localized peritonitis. Status post laparoscopic appendectomy on 03/28/2017. Continue antibiotics. Encourage early ambulation and frequent use of incentive spirometry. 2. Leukocytosis. Most probably secondary to #1. Continue antibiotics. 3. Prediabetes with hemoglobin A1c of 6.1. Weight reduction advised. 4. Obesity. BMI of 37.2 kg/m. Weight reduction advised. 5. Fluids, electrolytes, and nutrition. Low-cholesterol diet. 6. DVT prophylaxis. Bilateral sequential compression devices. Ambulation. 7. Gastrointestinal prophylaxis. Proton pump inhibitors. 8. Plan. Continue analgesics. Continue antibiotics. Encourage frequent ambulation and frequent use of incentive spirometry. Await clearance from surgery before discharging the patient home. Case discussed with Dr. Pina. Problems: Subjective 24 Hr Interval Summary Free Text/Dictation Abdominal pain well controlled. Tolerating oral intake. Exam/Review of Systems Vital Signs Vitals Vital Signs Date Time Temp Pulse Resp B/P Pulse Ox O2 Delivery O2 Flow Rate FiO2 03/29/17 08:20 99.0 65 16 102/61 90 03/28/17 22:47 Room Air Intake and Output 03/28/17 03/28/17 03/29/17 15:00 23:00 07:00 Intake Total 100 ml 900 ml 300 ml Balance 100 ml 900 ml 300 ml Exam General: Obese 37 year-old female lying in bed in no apparent distress. HEENT: Normocephalic, atraumatic. Eyes: Anicteric sclerae, conjunctivae clear. ENT: Nasal septum midline, oral mucosa moist. Neck supple, no JVD noticed. Respiratory: Bilaterally clear breath sounds. No use of accessory muscles of respiration. No adventitious breath sounds. Cardiovascular: S1, S2 heard. No murmurs or gallops. Abdomen: Soft and nondistended. Bowel sounds positive in all 4 quadrants. Laparoscopic incision sites clean, dry, and intact. Genitourinary: Deferred. Extremities: No cyanosis, no clubbing, no edema. Peripheral pulses palpable. Neurologic: Cranial nerves II through XII grossly intact. The patient is awake, alert, and oriented. Skin: Normal skin turgor. No skin rashes. Results Result Diagram: 03/29/17 0702 03/29/17 0702 Results 24 hrs Laboratory Tests Test 03/28/17 15:00 03/29/17 07:02 Urine Color YELLOW Urine Clarity CLOUDY A Urine pH 7.[address] [place] 1.030 Urine Ketones NEGATIVE Urine Nitrite NEGATIVE Urine Bilirubin NEGATIVE Urine Urobilinogen NEGATIVE Urine Leukocyte Esterase NEGATIVE Urine Microscopic RBC 1 Urine Microscopic WBC 0 Urine Squamous Epithelial Cells MANY A Urine Bacteria FEW A Urine Mucus FEW A Urine Hemoglobin NEGATIVE Urine Glucose NEGATIVE Urine Total Protein NEGATIVE Urine Test NEGATIVE White Blood Count 11.6 #H Red Blood Count 4.15 L Hemoglobin 11.5 L Hematocrit 35.6 L Mean Corpuscular Volume 85.8 Mean Corpuscular Hemoglobin 27.7 L Mean Corpuscular Hemoglobin Concent 32.3 Red Cell Distribution Width 14.2 Platelet Count 331 Mean Platelet Volume 11.6 H Neutrophils % 86.2 H Lymphocytes % 11.3 L Monocytes % 1.9 Eosinophils % 0.0 Basophils % 0.3 Nucleated Red Blood Cells % 0.0 Neutrophils # 10.0 H Lymphocytes # 1.3 Monocytes # 0.2 L Eosinophils # 0.0 Basophils # 0.0 Nucleated Red Blood Cells # 0.0 Sodium Level 142 Potassium Level 4.6 Chloride Level 103 Carbon Dioxide Level 26 Anion Gap 18 H Blood Urea Nitrogen 7 Creatinine 0.69 Glucose Level 146 Calcium Level 9.0 Phosphorus Level 3.7 Magnesium Level 2.2 Total Bilirubin 0.7 Direct Bilirubin 0.00 Indirect Bilirubin 0.7 Aspartate Amino Transf (AST/SGOT) 21 Alanine Aminotransferase (ALT/SGPT) 41 Alkaline Phosphatase 68 Total Protein 6.9 # Albumin 4.2 Globulin 2.70 Albumin/Globulin Ratio 1.55 Medications Medications Current Medications Sodium Chloride (NS) 1,000 ml @ 80 mls/hr [id number] IV Last administered on 03/28 23:58; Admin Dose 80 MLS/HR; Start 03/28/17 at 05:38 Ondansetron HCl (Zofran Inj) 4 mg Q6H PRN IV NAUSEA AND/OR VOMITING Last administered on 03/28/17 17:27; Admin Dose 4 MG; Start 03/28/17 at 06:00 Morphine Sulfate (morphine) 2 mg Q4H PRN IV SEVERE PAIN LEVEL 7-10; Start 03/28 at 06:00 Pantoprazole 40 mg 40 mg DAILY@06 IV Last administered on 03/29/17 06:12; Admin Dose 40 MG; Start 03/28/17 at 06:00 Piperacillin Sod/ Tazobactam Sod (Zosyn 3.375gm/ 100 ml (Pmx)) 100 ml @ 200 mls /hr Q6 IVPB Last administered on 03/29/17 06:12; Admin Dose 200 MLS/HR; Start 03/28/17 at 12:00 Acetaminophen (Tylenol Tab) 650 mg Q6H PRN PO PAIN LEVEL 1-3 OR FEVER; Start at 22:30 Hydromorphone HCl (Dilaudid) 0.5 mg Q4H PRN IV PAIN LEVEL 8-10 Last administered on 03/29/17 06:12; Admin Dose 0.5 MG; Start 03/28/17 at 22:30 Acetaminophen/ Hydrocodone Bitart ([place] (5/325)) 1 tab Q6H PRN PO PAIN LEVEL 4 -7; Start 03/28/17 at 22:30 Acetaminophen/ Hydrocodone Bitart ([place] (10/325)) 1 tab Q6H PRN PO PAIN LEVEL 4-7; Start 03/28/17 at 22:30 Docusate Sodium (Colace) 100 mg BID PO Last administered on 03/29/17 08:37; Admin Dose 100 MG; Start 03/29/17 at 09:00 SARAH SINGH NP Mar 29, 2017 11:23
[2017-03-29 14:20] VITALS: BP 111/67; RESP 16
[2017-03-29] MEDS: SOD CHLORIDE 0.9% 1,000 ML IV SCH (17:41)
--- NOTE | 2017-03-29 18:17 | PN ---
Date/Time of Note Date/Time of Note DATE: 03/29/17 TIME: 18:15 Assessment/Plan Lines/Catheters IV Catheter Type (from Nrsg): Peripheral IV Khan in Place (from Nrsg): No Assessment/Plan Assessment/Plan 37-year-old female s/p Lap Appy POD#1 * Surgically stable for discharge home when medically cleared * Follow up in office in 1-2 weeks Subjective 24 Hr Interval Summary Doing well. Pain controlled. Ambulating. Tolerating diet. Afebrile. Exam/Review of Systems Vital Signs Vitals Vital Signs Date Time Temp Pulse Resp B/P Pulse Ox O2 Delivery O2 Flow Rate FiO2 03/29/17 14:20 98.2 81 16 111/67 94 03/28/17 22:47 Room Air Intake and Output 03/28/17 03/28/17 03/29/17 15:00 23:00 07:00 Intake Total 100 ml 900 ml 300 ml Balance 100 ml 900 ml 300 ml Exam Free Text/Dictation GENERAL: Awake, alert, oriented x 3. No acute distress. CARDIOVASCULAR: S1S2, regular rate and rhythm. No murmurs appreciated. RESPIRATORY: Clear to auscultation bilaterally. ABDOMEN: Obese, soft, bowel sounds present, nondistended. appropriate incisional tenderness to palpation INCISIONS: clean, dry, intact EXTREMITIES: Free range of motion x 4. No cyanosis, edema, or clubbing. Results Result Diagram: 03/29/17 0702 03/29/17 0702 ANGIE RILEY MD Mar 29, 2017 18:16
--- NOTE | 2017-03-29 18:22 | PDOCDIS ---
Discharge Instructions DIAGNOSIS Discharge Diagnosis Acute appendicitis. Status post lap appendectomy. CONDITION Patient Condition: Stable HOME CARE INSTRUCTIONS: Diet Instructions: Regular FOLLOW UP/APPOINTMENTS Follow-up Plan 1. Elliot Graham MD, General Surgery. OTHER ORDERS: Other Orders: 1. Regular diet as tolerated. 2. Keep incisions clean and dry. May shower. Avoid tub baths and swimming for 2 weeks. Use mild soap and pat dry the incisions. 3. Take medications as needed for pain. 4. Call the surgeon or go to the nearest ER if you have severe abdominal pain despite pain medications. 5. Call the surgeon or go to the nearest ER if you notice any bleeding or secretions coming out of the incision sites. Also call the surgeon if you notice any blood in stool, if you have persistent fevers, or any other unusual signs or symptoms. 6. Follow-up with the surgeon (Dr. Graham) in 7 days for incision check. 7. Avoid heavy lifting [more than 25 pounds] for 8 weeks. SARAH SINGH NP Mar 29, 2017 18:22
[2017-03-29] MEDS ORDERED: CEPH-443 PO (18:26)
--- NOTE | 2017-03-29 18:45 | DS ---
Date/Time of Note Date/Time of Note DATE: 03/29/17 TIME: 18:44 Discharge Summary Admission/Discharge Info Admit Date/Time Mar 28, 2017 at 05:06 Discharge Date/Time Discharge Diagnosis 1. Acute appendicitis. Status post lap appendectomy. 2. Prediabetes. 3. Obesity. Consults 1. Elliot Graham MD, General Surgery. Procedures Laparoscopic appendectomy on 03/28/2017. Hx of Present Illness Chief complaint: Abdominal pain 2 days This is a 37 year female presenting to the ER with abdominal pain 2 days. Patient had abdominal pain yesterday and came to the ED and had CAT scan imaging which was questionable for appendicitis of the tip. She was subsequently discharged home. She continued to have abdominal pain and nausea vomiting today. She describes the pain as sharp and is relatively all around the umbilicus and right side of her abdomen. Allergies: NKDA Medications: None Hospital Course The patient was admitted to inpatient medical surgical floor. The patient was kept n.p.o. The patient was started on empiric antibiotics. The patient was started on IV fluids. The patient was evaluated by general surgery and the patient was taken to the OR the patient underwent a laparoscopic appendectomy on 03/28/2017. The patient's operative findings showed some localized peritonitis. Postoperatively, the patient was started on a clear liquid diet and the patient's diet was advanced as tolerated to a regular consistency diet. The patient was encouraged on frequent ambulation and frequent use of incentive spirometry. The patient rarely needed any strong pain medications during the postoperative course. The patient is morbidly obese with a BMI of 37.2 kg/m. The patient was noticed to have prediabetes with a hemoglobin A1c of 6.1. The patient was informed about the same. The patient was encouraged on weight reduction. The patient was cleared by general surgery to be discharged home. The patient will be discharged home on oral antibiotics to be followed up with the surgeon. The patient refused to take any stronger analgesics. The patient verbalized that she will use [id number] Motrin for any pain. Discharge Instructions 1. Regular diet as tolerated. 2. Keep incisions clean and dry. May shower. Avoid tub baths and swimming for 2 weeks. Use mild soap and pat dry the incisions. 3. Take medications as needed for pain. 4. Call the surgeon or go to the nearest ER if you have severe abdominal pain despite pain medications. 5. Call the surgeon or go to the nearest ER if you notice any bleeding or secretions coming out of the incision sites. Also call the surgeon if you notice any blood in stool, if you have persistent fevers, or any other unusual signs or symptoms. 6. Follow-up with the surgeon (Dr. Graham) in 7 days for incision check. 7. Avoid heavy lifting [more than 25 pounds] for 8 weeks. The patient verbalized understanding of her discharge instructions. At this time I would like to thank Dr. Graham for seeing the patient, doing the necessary procedures, and providing clinical recommendations. Case discussed with Dr. Pina. Home Meds Active Scripts Cephalexin* (Keflex*) 500 Mg Capsule, 500 MG PO Q8 for 7 Days, #21 CAP Prov:SARAH SINGH NP 03/29/17 Pantoprazole* (Protonix*) 40 Mg Tablet., 40 MG PO DAILY for 15 Days, #20 TAB Prov:EDILBERTO NAZARIO MD 03/27/17 Discontinued Reported Medications [Pt Takes No Meds] No Conflict Check 11/06/12 Discontinued Scripts Acetaminophen* (Tylophen*) 500 Mg Capsule, 1 CAP PO Q6H Y for PAIN AND OR ELEVATED TEMP, #20 CAP Prov:EDILBERTO NAZARIO MD 03/27/17 Ibuprofen* (Motrin*) 400 Mg Tab, 400 MG PO Q6, #30 TAB 0 Refills Prov:EVELYN KATZ PA-C 02/16/16 Guaifenesin-Dextromethorphan* (Robitussin* DM) 100MG/10MG/5ML Syrup, 5 ML PO Q6H Y for COUGH for 6 Days, #120 ML 0 Refills Prov:EVELYN KATZ PA-C 02/16/16 Follow-up Plan Follow-up with Dr. Graham in 1 week. Primary Care Provider [facility] Time spent on discharge: > 30 minutes Pending Labs Laboratory Tests Test 03/29/17 07:02 White Blood Count 11.610^3/ul (4.8-10.8) Red Blood Count 4.1510^6/ul (4.20-5.40) Hemoglobin 11.5g/dl (12.0-16.0) Hematocrit 35.6% (37.0-47.0) Mean Corpuscular Volume 85.8fl (82.0-101.0) Mean Corpuscular Hemoglobin 27.7pg (29.0-33.0) Mean Corpuscular Hemoglobin Concent 32.3g/dl (32.0-37.0) Red Cell Distribution Width 14.2% (11.5-14.5) Platelet Count 53770^3/UL (140-415) Mean Platelet Volume 11.6fl (7.4-10.4) Neutrophils % 86.2% (39.0-77.0) Lymphocytes % 11.3% (15.0-51.0) Monocytes % 1.9% (0.0-11.0) Eosinophils % 0.0% (0.0-7.0) Basophils % 0.3% (0.0-2.0) Nucleated Red Blood Cells % 0.0/100WBC (0.0-0.0) Neutrophils # 10.010^3/ul (1.6-7.5) Lymphocytes # 1.310^3/ul (0.8-2.9) Monocytes # 0.210^3/ul (0.3-0.9) Eosinophils # 0.010^3/ul (0.0-0.5) Basophils # 0.010^3/ul (0.0-0.1) Nucleated Red Blood Cells # 0.010^3/ul (0.0-0.0) Sodium Level 142mmol/L (135-144) Potassium Level 4.6mmol/L (3.5-5.1) Chloride Level 103mmol/L (97-110) Carbon Dioxide Level 26mmol/L (21-31) Anion Gap 18 (8-16) Blood Urea Nitrogen 7mg/dl (7-20) Creatinine 0.69mg/dl (0.44-1.00) Glucose Level 146mg/dl (70-220) Calcium Level 9.0mg/dl (8.4-10.2) Phosphorus Level 3.7mg/dl (2.5-4.9) Magnesium Level 2.2mg/dl (1.7-2.5) Total Bilirubin 0.7mg/dl (0.2-1.3) Direct Bilirubin 0.00mg/dl (0.00-0.20) Indirect Bilirubin 0.7mg/dl (0-1.1) Aspartate Amino Transf (AST/SGOT) 21IU/L (15-46) Alanine Aminotransferase (ALT/SGPT) 41IU/L (13-69) Alkaline Phosphatase 68IU/L (42-121) Total Protein 6.9g/dl (6.1-8.1) Albumin 4.2g/dl (3.3-4.9) Globulin 2.70g/dl (1.3-3.2) Albumin/Globulin Ratio 1.55 SARAH SINGH NP Mar 29, 2017 18:45
== END 2017-03-29 19:43 | disposition home or self-care (01) | DRG 340 ==
LOC: E/R 03:09 → PP2 05:06
PROVIDERS: ADMIT Family Medicine; ATTEND Family Medicine
PROC: 0DTJ4ZZ Resection of Appendix, Percutaneous Endoscopic Approach (ICD-10-PCS; principal; 2017-03-28 19:00)
DX: K35.3 Acute appendicitis with localized peritonitis (principal); E66.01 Morbid (severe) obesity due to excess calories; Z68.37 Body mass index [BMI] 37.0-37.9, adult; R73.03 Prediabetes
CPT/HCPCS: 36415; 71010; 80053; 80061; 81001; 83036; 83690; 83735; 84100; 84443; 84703; 85025; 88304; 93005; 96374; 96375; C9113; J0690; J1100; J1170; J2175; J2250; J2270; J2405; J2543; J2710; J2765; J3010; J7030; J7040; J7999

== ENCOUNTER 2018-07-05 18:10 | Emergency (ER) | END 2018-07-05 20:04 | disposition home or self-care (01) ==